=== PATIENT | female | born 2000 | race Caucasian/White ===

== ENCOUNTER 2020-05-28 11:56 | Emergency (ER) | payer SELFPAY ==
[~2020-05-28] VITALS: Ht 129.5 cm; Wt 77.3 kg
[2020-05-28 11:59] VITALS: BP 119/80; Ht 129.5 cm; Wt 77.3 kg
[2020-05-28 13:23] LABS: BASOPHILS 0.5 % (0-2); EOSINOPHILS 0.9 % (0-7); HEMATOCRIT 39.5 % (36.0-48.0); HEMOGLOBIN 12.9 g/dL (12-16); IMMATURE GRANULOCYTES 0.2 % (0-5); LYMPHOCYTE ABS# 2.82 10x3/uL (1.18-3.74); LYMPHOCYTES 32.1 % (15-50); MCH 28.8 pg (26.0-34.0); MCHC 32.7 g/dL (31.0-37.0); MCV 88.2 fL (80.0-100.0); MEAN PLATELET VOLUME 10.2 fL (7.4-10.4); MONOCYTES 6.3 % (2-11); NEUTROPHIL ABS# 5.28 10x3/uL (1.56-6.13); PLATELET COUNT 346 10x3/uL (130-400); RBC 4.48 10x6/uL (4.00-5.40); RDW 12.9 % (11.5-14.5); WBC 8.8 10x3/uL (4.8-10.8)
[2020-05-28 13:26] LABS: BACTERIA FEW HPF (NONE SEEN); BILIRUBIN NEGATIVE (NEGATIVE); KETONE NEGATIVE (NEGATIVE); NITRITE NEGATIVE (NEGATIVE); SQUAMOUS EPITHELIAL 0-5 HPF (0-4); UROBILINOGEN NORMAL mg/dL (< 2); WHITE CELLS - URINE OCC HPF (0-4)
[2020-05-28 13:30] LABS: CALC OSMOLALITY 279 mosm/kg (275-300); CALCIUM 8.9 mg/dL (8.5-10.1); CARBON DIOXIDE 26.3 mmol/L (21.0-32.0); CHLORIDE - SERUM 107 mmol/L (98-107); CREATININE - SERUM 0.6 mg/dL (0.6-1.3); POTASSIUM - SERUM 3.9 mmol/L (3.5-5.1); SODIUM 140 mmol/L (136-145); UREA NITROGEN 15 mg/dL (7-18); eGFR NON AFRICAN AMERICAN > 90 mL/min (90-120)
[2020-05-28 13:32] LABS: GLUCOSE 93 mg/dL (74-106)
[2020-05-28 13:36] LABS: ALKALINE PHOSPHATASE 88 U/L (30-120); ALT (SGPT) 23 U/L (10-68); BILIRUBIN - TOTAL 0.39 mg/dL (0.2-1.3)
[2020-05-28 13:37] LABS: HCG SERUM NEGATIVE (NEGATIVE)
== END 2020-05-28 13:53 | disposition home or self-care (01) ==
LOC: D.ER 11:56
PROVIDERS: Family Medicine
DX: N92.6 Irregular menstruation, unspecified (principal)